=== PATIENT | male | born 1975 | race Caucasian/White ===

== ENCOUNTER 2016-10-17 12:45 | Emergency (ER) | payer OTHER ==
[~2016-10-17 12:45] MED LIST: ONDA8TAB7 PO
[2016-10-17 12:47] VITALS: BP 148/108; PULSE 99; RESP 16; O2SAT 99
--- NOTE | 2016-10-17 12:57 | ED.REPORT ---
HPI-General Illness Date of Service October 17, 2016 ED Provider: Pasquale Cary MD Pt is a 41 y.o. male with a hx of intractable vomiting who presents to the ED c/ o of an exacerbation of his typical vomiting and abdominal discomfort symptoms. Pt reports associated nausea, vomiting, intermittent constipation/diarrhea, chills, SOB associated with episodes of vomiting. Pt reports taking Zofran ODT this morning with no relief. He states that he has had these same sx for the last 17 years and has been seen for his sx multiple times and no clear etiology has been identified. He endorses occasional THC use though denies that he uses marijuana daily. He has no history of abdominal surgeries. He is able to pass flatus. He has had no bloody emesis or bloody stool/diarrhea. He denies melena. He states that he is currently followed by his regular physician with ongoing workup for his symptoms. He states that he comes to the emergency department today hoping to achieve symptomatic management. Nursing Notes Stated Complaint: STOMACH PAIN Chief Complaint: Male Abdominal Pain Nursing Notes Reviewed: Yes Allergies: Coded Allergies: No Known Allergies (Unverified , 10/19/15) Scheduled PRN Ondansetron ODT (Zofran ODT) 8 Mg Tablet 8 MG PO TID PRN PRN For Nausea General Time Seen by MD: 12:57 Chief Complaint Abdominal pain Hx Obtained From: Patient Arrived By: Walk-in Sudden in Onset?: Yes Location: : Abdomen Quality: Painful Severity: Current: Pain level 8 out of 10 Similar Sx Previous: Yes Past Medical History Past Medical History hx. of intractable vomiting Social History Alcohol Use: Denies alcohol use Drug Use: THC Ambulatory Status Independent Review of Systems Full Review of Systems Constitutional: Reports: Chills, Fever (subjective) GI: Reports: Abdominal pain, Constipation, Nausea, Vomiting Complete sys rev & neg: except as marked. Physical Exam Vital Signs Vital Signs Date Time Temp Pulse Resp B/P Pulse Ox O2 Delivery O2 Flow Rate FiO2 10/17/16 14:31 37.1 84 18 159/96 99 Room Air 10/17/16 12:47 36.2 99 16 148/108 99 Room Air Initial VS: Reviewed Head / Eyes: Atraumatic, Normocephalic, PERRL Extremities: Vascular intact, Neuro intact Skin: Warm, Dry, No cyanosis Neurologic: Alert, Oriented, Nonfocal Psychiatric: Mood/affect normal, Behavior normal, Normal thought content General/Constitutional: Awake, Alert, Well appearing, Well developed, Well nourished, Not toxic appearing Respiratory / Chest: Atraumatic, Breath sounds NL, Breath sounds = bilat, No respiratory distress Cardiovascular: Heart rate NL, Regular rhythm, Heart sounds NL, Cap refill not delayed, Peripheral circulation NL Abdomen: Atraumatic, Soft, Non-tender, No guarding, No rebound, No distention Interpretation & Diagnostics Lab Results Interpretation Test 10/17/16 13:20 Hold Purple Top Tube Received (Received) Hold Blue Top Tube Received (Received) Hold [place] Top Tube Received (Received) Hold [place] Top Tube Received (Received) Re-Eval/Medical Decision Med Decision/Clinical Course Pt is a 41 y.o. male with a hx of intractable vomiting who presents to the ED c/ o of an exacerbation of his typical vomiting and abdominal discomfort symptoms. Pt reports associated nausea, vomiting, intermittent constipation/diarrhea, chills, SOB associated with episodes of vomiting. Pt reports taking Zofran ODT this morning with no relief. He states that he has had these same sx for the last 17 years and has been seen for his sx multiple times and no clear etiology has been identified. He endorses occasional THC use though denies that he uses marijuana daily. He has no history of abdominal surgeries. He is able to pass flatus. He has had no bloody emesis or bloody stool/diarrhea. He denies melena. He states that he is currently followed by his regular physician with ongoing workup for his symptoms. He states that he comes to the emergency department today hoping to achieve symptomatic management. Here in the emergency department the patient is afebrile with stable vital signs and relatively benign abdominal examination. IV fluids, Benadryl, and Haldol administered with good effect. Patient was able to tolerate PO and reported significant improvement. Serial abdominal examinations remained benign. At this time I see no evidence of acute surgical intra-abdominal process. Patient' s presentation today is completely consistent with prior episodes of his presumed cyclical vomiting versus cannabis hyperemesis syndrome. Discussed abstaining for marijuana. He has ongoing outpatient workup that I do not feel that obtaining laboratory imaging studies today would add to the extensive workup that he is already had for his symptoms. He is slightly dehydrated though is now tolerating fluids by mouth and is received IV fluids here in the emergency room. Patient states that he would like to go home and I feel that this is appropriate. Prior to discharge follow-up and return precautions were reviewed in detail with the patient who verbalized understanding and agreement with the plan. The patient was discharged in stable condition. Source of Hx: Old records Re-Evaluation/Progress Note: Pt rechecked. Pt is feeling improved. Discussed plan for discharge, pt understands and agrees with plan. Counseled Regarding: Diagnosis, Lab results, Need for follow-up, When/why to return to ED Discharge & Departure Primary Impression: Cyclical vomiting syndrome Vomiting Intractability: non-intractable Nausea presence: with nausea Qualified Code: G43.A0 - Cyclical vomiting, not intractable Additional Impressions: Cannabinoid hyperemesis syndrome Dehydration Disposition: Home Discharge Condition All VS Reviewed: Yes Condition: Improved Additional Instructions: Thank you for seeking care at the emergency room. You were seen today for an exacerbation of your recurrent episodes of vomiting and dehydration. Our primary goal today in the ED was to evaluate you for any life-threatening conditions. Your evaluation was reassuring. You were treated with fluids and medications to help stop her vomiting. I recommend not smoking marijuana as this can sometimes lead to cyclical vomiting. You should follow-up with your primary doctor in the next week. You should return to the ED immediately if you develop recurrent vomiting, new/ worsening abdominal pain, inability to keep down fluids, fevers, cough, shortness of breath, chest pain, lightheadedness, weakness or any other concerning signs or symptoms. Thank you for letting us partake in your care today. Referrals: Ann Henry (PCP) Destini Attestation Portions of this note were transcribed by Demetris Chauhan. I, Dr. Cary personally performed the history, physical exam and medical decision-making; I reviewed and confirmed the accuracy of the information in the transcribed note. Signed by: Destini Jimenez, 10/17/16 and 1400. copies to: Huyen Henry Beck O MD October 17, 2016 12:57 DEMETRIS CHAUHAN October 17, 2016 13:10
[2016-10-17] MEDS ORDERED: Haloperidol 5 mg/mL Inj IVPUSH ONE (13:15)
[2016-10-17] MEDS ORDERED: 0.9% Sodium Chloride 1,000 ML IV ONE ×2 (13:15)
[2016-10-17 14:31] VITALS: BP 159/96; PULSE 84; RESP 18; O2SAT 99
== END 2016-10-17 14:37 | disposition home or self-care (01) ==
LOC: SED 12:45
DX: G43.A0 Cyclical vomiting, in migraine, not intractable (principal); E86.0 Dehydration; F12.10 Cannabis abuse, uncomplicated
CPT/HCPCS: 96361; 96374; 96375; 99284; J1200; J1630; J7030

== ENCOUNTER 2016-10-20 10:54 | Emergency (ER) | payer OTHER ==
[~2016-10-20] VITALS: Ht 177.8 cm; Wt 70.5 kg
[2016-10-20 11:04] VITALS: BP 152/97; PULSE 65; RESP 14; O2SAT 99
--- NOTE | 2016-10-20 11:14 | ED.REPORT ---
HPI-Abd Pain M 40 and Over Date of Service October 20, 2016 ED Provider: The patient is a 41 year old male with history of intractable vomiting, who presents to the emergency department complaining of LLQ abdominal pain that began 4 days ago. He also complains of nausea, vomiting, and decreased PO intake. He has had similar symptoms many times in the past. He was seen here on Wednesday for the same. He felt better prior to discharge but his symptoms returned yesterday and are now more severe. He has an appointment with his regular doctor tomorrow. He smokes marijuana about once per week and is currently trying to quit smoking tobacco. Nursing Notes Stated Complaint: ABDOMINAL PAIN/VOMITING Chief Complaint: Male Abdominal Pain Nursing Notes Reviewed: Yes Allergies: Coded Allergies: No Known Allergies (Unverified , 10/20/16) Scheduled PRN Ondansetron ODT (Zofran ODT) 8 Mg Tablet 8 MG PO TID PRN PRN For Nausea General Time Seen by MD: 11:14 Chief Complaint Abdominal pain Hx Obtained From: Patient, Spouse Arrived By: Walk-in Sudden in Onset?: Yes Onset Occurred: 4 days ago Symptom Duration: Waxes and wanes Progression since Onset: Waxes and wanes, Gradually worsening Location: : LLQ Quality: Painful Radiation: : Does not radiate Severity: Current: Moderate Severity: Maximum: Severe Recent Healthcare: No recent hospitalization, Prior workup Similar Sx Previous: Yes Past Medical History Past Medical History History of intractable vomiting Past Surgical History Endoscopy Colonoscopy Family History Noncontributory Smoking History Unknown if Ever Smoker Social History Alcohol Use: "Social" (very rarely) Drug Use: THC Other Social History: Good social support, Local resident Ambulatory Status Independent Review of Systems GI: Reports: Abdominal pain, Anorexia, Nausea, Vomiting Complete sys rev & neg: except as marked. Physical Exam Initial Vital Signs Vital Signs (First) Date Time Temp Pulse Resp B/P Pulse Ox O2 Delivery O2 Flow Rate FiO2 10/20/16 11:04 36.0 65 14 152/97 99 Room Air Initial VS: Reviewed Head / Eyes: Atraumatic, Normocephalic, PERRL ENT: Mucous membranes moist, Conjunctiva normal, No scleral icterus Neck: Supple, Non-tender, Full range of motion Extremities: Vascular intact, Neuro intact, No swelling, No tenderness Skin: Warm, Dry, No cyanosis Neurologic: Alert, Oriented, Nonfocal General/Constitutional: Awake, Alert Respiratory / Chest: Atraumatic, Breath sounds NL, Breath sounds = bilat, No respiratory distress, No rales, No rhonchi, No wheezing Cardiovascular: Heart rate NL, Regular rhythm, Heart sounds NL, Peripheral circulation NL Abdomen: Atraumatic, Soft, Non-tender, McBurney's non-tender, No guarding, No rebound, BS normoactive, No distention, No hernia, No palpable mass, No pulsatile mass Back: Inspection NL, Non-tender, No CVA tenderness Abnormal Mood/Affect: Positive: Flat affect Interpretation & Diagnostics Lab Results Interpretation Test 10/20/16 11:30 Re-Eval/Medical Decision Source of Hx: Old records, Family Time of Eval: 13:14 Re-Evaluation/Progress Note: Rechecked the patient. He is feeling much better. Discussed plan for discharge. Will draw labs so his physician has results tomorrow. Counseled Regarding: Diagnosis, Lab results, Need for follow-up, When/why to return to ED Discharge & Departure Primary Impression: Vomiting Vomiting type: unspecified Vomiting Intractability: intractable Nausea presence: with nausea Qualified Code: R11.2 - Nausea with vomiting, unspecified Disposition: Home Vital Signs - All Vital Signs Date Time Temp Pulse Resp B/P Pulse Ox O2 Delivery O2 Flow Rate FiO2 10/20/16 11:04 36.0 65 14 152/97 99 Room Air )( All Prior VS Reviewed: Yes Condition: Stable Patient Instructions: Acute Abdominal Pain (ED) Additional Instructions: Thank you for entrusting us with your care today. There was no dangerous condition discovered today. I hope you are feeling better soon. Keep your appointment with your primary doctor tomorrow. Drink fluids as tolerated. Use metoclopramide as needed for nausea. Return to the emergency department for any new or concerning symptoms. Referrals: Ann Henry (PCP) Scribe Attestation Portions of this note were transcribed by Gilma Morfin. I, Dr. Zeng personally performed the history, physical exam and medical decision-making; I reviewed and confirmed the accuracy of the information in the transcribed note. Signed by: Destini Moulton, 10/20/2016 at 1320. copies to: Ann Henry Kirk H MD October 20, 2016 11:14 Navjot,Gilma Murrell October 20, 2016 11:23
[2016-10-20] MEDS ORDERED: 0.9% Sodium Chloride 1,000 ML IV ONE (11:32)
[2016-10-20] MEDS ORDERED: Haloperidol 5 mg/mL Inj IVPUSH ONE (11:35)
[2016-10-20] MEDS ORDERED: Dexamethasone 10 mg/mL Inj IVPUSH ONE (11:35)
[2016-10-20] MEDS ORDERED: Acetaminophen IV 1,000 MG in IV Premix 1 EACH IV ONE (11:35)
[2016-10-20] MEDS ORDERED: MetoCLOpramide 5 mg/mL 2 mL Inj IVPUSH ONE (11:35)
[2016-10-20] MEDS ORDERED: METO-301 PO (13:19)
[2016-10-20 13:21] LABS: BASOPHILS % (AUTO) 0.1 % (0-3); EOSINOPHILS % (AUTO) 0.3 % (0-5); MONOCYTES % (AUTO) 9.1 % (4-12); Mean Corpuscular Hemoglobin 30.8 pg (27.0-35.0); NEUTROPHILS % (AUTO) 83.8 % (40-74); Platelet Count 333 bil/L (150-400)
[2016-10-20 13:29] VITALS: BP 160/88; PULSE 71; RESP 14; O2SAT 97
== END 2016-10-20 13:32 | disposition home or self-care (01) ==
LOC: SED 10:54
DX: R11.2 Nausea with vomiting, unspecified (principal)
CPT/HCPCS: 36415; 80053; 85025; 96361; 96374; 96375; 99284; J0131; J1100; J1200; J1630; J1885; J2765; J7030